=== PATIENT | female | born 1975 | race Caucasian/White ===

== ENCOUNTER 2022-08-11 07:13 | Emergency (ER) | payer MEDICAID, SELFPAY ==
[2022-08-11 07:15] VITALS: BP 163/86; PULSE 90; RESP 18; TEMP 36.8; O2SAT 100; BMI 37.3
--- NOTE | 2022-08-11 07:29 | EKG12_ITS ---
Test Reason : CP Blood Pressure : / mmHG Vent. Rate : 089 BPM Atrial Rate : 089 BPM P-R Int : 134 ms QRS Dur : 074 ms QT Int : 386 ms P-R-T Axes : 063 033 035 degrees QTc Int : 469 ms Normal sinus rhythm Normal ECG Confirmed by JENARO CLAIRE, [place] ([id number]), graphic editor ALY AGUILAR ([id number]) on 08/12/2022 1:43:00 PM Referred By: BRANNON Confirmed By:CHINA EASON MD
--- NOTE | 2022-08-11 07:30 | ED.VIS.CHEST ---
HPI History of Present Illness Chief Complaint: Chest Pain Narrative Narrative: 46-year-old female who denies significant past medical history, former smoker with family history, presents with left-sided pleuritic chest pain that began at 5 AM, approximately 2-1/2 hours ago. It did not wake her from sleep as she states she was already awake. She states that she has had a strange, whistling cough since June that has been on and off. However, this does feel like when she had pneumonia in 2011. She has pain under her left breast at the bottom of her rib cage. She denies any fevers or chills. No nausea or vomiting, no other symptoms, no leg swelling. [facility] Medical History Asthma delivery delivered Home Medications albuterol sulfate 90 mcg/actuation aerosol inhaler (Ventolin HFA) 1 - 2 puff inhalation Q4H PRN PRN Wheezing #1 ea 08/11/22 [Rx Last Taken Unknown] levofloxacin 750 mg tablet 750 mg PO DAILY #7 tabs 08/11/22 [Rx Last Taken Unknown] Allergy/AdvReac Type Severity Reaction Status Date / Time Penicillins [PCN] Allergy Rash Verified 08/11/22 07:15 Surgical History History of tonsillectomy Social History Smoking Status: Former smoker ROS ROS ED ROS Narrative Constitutional: No fever, no chills. HEENT: No sore throat. No neck pain. No loss of vision. No rhinorrhea. Cardiovascular: Left-sided pleuritic chest pain. No palpitations. No pedal edema. Respiratory: Whistling cough, intermittent no shortness of breath. Abdominal: No abdominal pain. No nausea. No vomiting. Genitourinary: No dysuria. No hematuria. Musculoskeletal: No myalgias. No arthralgias. Neurologic: No headaches. No dizziness. No lightheadedness. Skin: No rash. No change in color. Psychiatric: No depression. No anxiety. EXAM Physical Exam Narrative Exam Narrative: Afebrile. Vital signs noted. HEENT: Normocephalic. Atraumatic. PERRL, EOMI. Neck soft and supple. No point tenderness or step off. Cardiovascular: Regular rate and rhythm. No murmurs, rubs, or gallops appreciated. Respiratory: No tachypnea. Lungs clear to auscultation bilaterally. Gastrointestinal: Abdomen soft, nontender, with normoactive bowel sounds. No rebound or guarding. Neurological: Awake. Alert. Nonfocal, nonlateralizing. Skin: No rash. Normal color. No pallor. Musculoskeletal: No pedal edema. Full range of motion extremities. Const Vital Signs: 08/11/22 07:15 08/11/22 07:17 08/11/22 07:31 Temperature 98.2 F Temperature Source Temporal Pulse Rate 90 Respiratory Rate 18 Respiratory Effort Normal Non-Labored Blood Pressure 163/86 H Blood Pressure Mean 111 Pulse Ox 100 94 Oxygen Delivery Method Room Air Room Air 08/11/22 09:00 08/11/22 10:00 08/11/22 10:21 Temperature Temperature Source Pulse Rate 78 82 82 Respiratory Rate 17 19 H Respiratory Effort Blood Pressure 146/75 H 150/73 H 150/89 H Blood Pressure Mean 98 98 Pulse Ox 95 95 Oxygen Delivery Method Room Air Room Air Heart Score History: Slightly/Non-Suspicious ECG: Normal Age: >45 - <65 years Risk Factors: 1 or 2 Risk Factors Score: 2 MDM MDM MDM Narrative Medical decision making narrative: In the differential diagnosis is acute coronary syndrome versus pleurisy versus pneumonia versus pulmonary embolism. I feel that pulmonary embolism is less likely because she has a normal pulse rate, pulse ox is 100% on room air, and she denies any DVT or PE risk factors. D-dimer will be obtained. I also feel that acute coronary syndrome is less likely such as STEMI as she has a normal EKG. Her EKG was obtained and interpreted by myself which demonstrates normal sinus rhythm at 89 bpm without ectopy or acute ST changes. No STEMI. I also reviewed and interpreted the prehospital EKG which demonstrates normal sinus rhythm at 95 bpm without ectopy or acute ST changes, also without STEMI. She was administered aspirin. Chest x-ray will be obtained to rule out pneumonia along with laboratory work. I reviewed her laboratory work and she has slightly leukocytosis of 12.8 with normal hemoglobin of 14.7, platelet count normal at 261. D-dimer normal at 0.45, making pulmonary embolism less likely. Electrolyte panel shows normal sodium of 139, chloride 105, potassium normal at 4.0. Glucose is elevated at 289 but she has normal anion gap of 10. I do not feel that she is in diabetic ketoacidosis. High-sensitivity troponin initially is 7. She was administered aspirin for her pain. Second troponin will be repeated in 2 hours, and I feel she could be ruled out by biomarkers. Her repeat troponin is 6. Chest x-ray in 1 view interpreted by myself shows questionable left-sided pneumonia. I do feel that given her pleuritic pain and this feels that she had pneumonia on the side previously that she should be treated with antibiotics. She was given her first dose of Levaquin here in the emergency department and a prescription written for the next 7 days along with an albuterol inhaler to use every 4-6 hours as needed, as she describes a whistling cough. I did review the radiology report which also states that there is possible left lingular pneumonia. At this point in time, she will be discharged to follow-up with her primary care provider. She was referred to a provider on-call. Return instructions to the emergency department were reviewed. Disposition is discharged home in stable condition. Lab Data Attestation: I reviewed the patient's lab results. Labs: Laboratory Results - last 24 hr 08/11/22 08/11/22 08/11/22 07:35 07:35 07:35 WBC 12.8 H RBC 4.91 Hgb 14.7 Hct 45.1 MCV 91.9 MCH 29.9 MCHC 32.6 RDW Std Deviation 41.8 RDW Coeff of Allison 12.5 Plt Count 261 MPV 10.0 Immature Gran % (Auto) 2.400 H Neut % (Auto) 68.5 Lymph % (Auto) 20.4 Whitman % (Auto) 6.3 Eos % (Auto) 1.6 Baso % (Auto) 0.8 Absolute Neuts (auto) 8.7 H Absolute Lymphs (auto) 2.60 Nucleated RBC % 0 D-Dimer Quant (PE/DVT) 0.45 Sodium 139 Potassium 4.0 Chloride 105 Carbon Dioxide 24.0 Anion Gap 10 BUN 10 Creatinine 0.84 Estim Creat Clear Calc 62.48 Est GFR (MDRD) Af Amer 93 Est GFR (MDRD) Non-Af 77 BUN/Creatinine Ratio 11.9 Glucose 289 H Calcium 9.2 Troponin I High Sens 7 08/11/22 09:40 WBC RBC Hgb Hct MCV MCH MCHC RDW Std Deviation RDW Coeff of Allison Plt Count MPV Immature Gran % (Auto) Neut % (Auto) Lymph % (Auto) Whitman % (Auto) Eos % (Auto) Baso % (Auto) Absolute Neuts (auto) Absolute Lymphs (auto) Nucleated RBC % D-Dimer Quant (PE/DVT) Sodium Potassium Chloride Carbon Dioxide Anion Gap BUN Creatinine Estim Creat Clear Calc Est GFR (MDRD) Af Amer Est GFR (MDRD) Non-Af BUN/Creatinine Ratio Glucose Calcium Troponin I High Sens 6 Radiography Chest X-Ray - ED: Read by ED Physician Diagnostic Testing: Clinical Impression(s) from Imaging Studies Chest X-Ray 08/11/22 07:45 IMPRESSION: Question lingular pneumonia. Electronically Signed: Mike Gan MD at 8:15 EST , Discharge Plan Triage Chief Complaint: Chest Pain Other Complaint: Shortness of Breath ED Provider: Bo Laird Dx/Rx/DC Orders Clinical Impression: Lingular pneumonia, Chest pain Instructions: ED Chest Pain, Noncardiac, ED Pneumonia (Adult) Prescriptions: New levofloxacin 750 mg tablet 750 mg PO DAILY Qty: 7 0RF albuterol sulfate [Ventolin HFA] 90 mcg/actuation HFA aerosol inhaler 1 - 2 puff inhalation Q4H PRN PRN (Reason: Wheezing) Qty: 1 0RF Primary Care Provider: Care Physician,No Primary Referrals: Zuleyma Jeronimo MD [Med Staff - Regulatory Submissions Associate] - 1 Week if not improving Care Physician,No Primary [Primary Care Provider] - Disposition Disposition: Home, Self Care
[2022-08-11 07:31] VITALS: O2SAT 94
[2022-08-11] MEDS: Aspirin 81 MG TAB.CHEW 324 MG PO (07:35)
[2022-08-11] MEDS: 0.9% Normal Saline 1,000 ML 150 ML IV (07:40)
--- NOTE | 2022-08-11 07:45 | RAD_ITS ---
EXAM: XR CHEST, 1 VIEW CLINICAL INDICATION: chest pain TECHNIQUE: Frontal view of the chest. This report was created using [employer] report generation technology. COMPARISON: None. FINDINGS: LUNGS AND PLEURAL SPACES: Lingular opacity which may represent focal area of pneumonia. No pneumothorax. No effusion. HEART: Normal heart size. MEDIASTINUM: No mediastinal or hilar mass. BONES/JOINTS: No acute abnormality. SOFT TISSUES: Normal. RAD/Chest 1 View (Portable) IMPRESSION: Question lingular pneumonia. Electronically Signed: Mike Gan MD at 8:15 EST ,
[2022-08-11 07:47] LABS: Absolute Neutrophil Count 8.7 X10^3/uL (2.0-7.7); Basophil% 0.8 % (0-1); Eosinophil# 0.21 X10^3/uL; Eosinophils% 1.6 % (0-5); Hematocrit 45.1 % (37-47); Hemoglobin 14.7 g/dL (12.0-15.0); Lymphocyte % 20.4 % (19-41); Mean Corp Hgb Conc 32.6 g/dL (32-36); Mean Corpuscular Hgb 29.9 pg (27.0-32.0); Mean Corpuscular Volume 91.9 fL (81-99); Monocyte% 6.3 % (0-10); NRBC Flagged by Analyzer 0 % (0-5); Neutrophil # 8.74 X10^3/uL (2.7-7.7); Neutrophil % 68.5 % (47-70); Platelet Count 261 K/mm3 (150-450); RBC Distribution Width CV 12.5 % (11.6-14.6); RBC Distribution Width SD 41.8 fl (35.1-43.9); Red Blood Count 4.91 M/mm3 (4.2-5.4); White Blood Count 12.8 K/mm3 (4.4-11.0)
[2022-08-11 08:04] LABS: Anion Gap 10 (5-15); BUN 10 mg/dL (7-18); BUN/Creat Ratio 11.9 RATIO (10-20); Calcium,Total 9.2 mg/dL (8.5-10.1); Chloride 105 mmol/L (98-107); Creatinine, Serum 0.84 mg/dL (0.55-1.02); EST Glomerular Filtration Rate 77 mL/min (>60); Est Glom Filt Rate - Afr Amer 93 mL/min (>60); Estimated Creatinine Clearance 62.48 ml/min; Glucose 289 mg/dL (74-106); Sodium Level 139 mmol/L (136-145); Troponin-I HS (w/2H Reflex) 7 pg/mL (3.0-54.0)
[2022-08-11 08:06] LABS: D-Dimer Quantitative (DVT/PE) 0.45 FEU/ug/m (0.27-0.49)
[2022-08-11] MEDS: levoFLOXacin 750 MG Tablet PO (08:44)
[2022-08-11 09:00] VITALS: BP 146/75; PULSE 78; RESP 17; O2SAT 95
[2022-08-11 09:44] LABS: Reflex Troponin-HS? (from REC) Y
[2022-08-11 10:00] VITALS: BP 150/73; PULSE 82; RESP 19; O2SAT 95
[2022-08-11 10:11] LABS: Troponin-I HS 6 pg/mL (3.0-54.0)
[2022-08-11 10:21] VITALS: BP 150/89; PULSE 82
== END 2022-08-11 10:26 | disposition home or self-care (01) ==
PROVIDERS: Emergency Provider Emergency Medicine; Visit Provider Emergency Medicine
DX: J18.9 Pneumonia, unspecified organism (principal); Z87.891 Personal history of nicotine dependence; N64.4 Mastodynia; R07.9 Chest pain, unspecified; J45.909 Unspecified asthma, uncomplicated
CPT/HCPCS: 71045; 80048; 84484; 85025; 85379; 93005; 96360; 96361; 99285; J7030; A4216

== ENCOUNTER 2023-12-21 06:26 | Emergency (ER) | payer OTHER, SELFPAY ==
--- NOTE | 2023-12-21 09:17 | ED.VIS.BACK ---
HPI History of Present Illness Detail of Chief Complaint: Taking care of during computer downtime on 12/21/2023. Informant: patient Onset/Context/Timing Onset: Days Context: Gradual Onset Timing: Continuous Quality: Sharp Location: - (Right knee and lower neck pain) Current Severity: Moderate Maximum Severity: Moderate Worsened by: improves with Movement Relieved by: Nothing Associated Symptoms Associated Symptoms: Tingling and - (Radiation the right arm and right thumb.) Narrative Narrative: 48-year-old female 9-day history of lower neck and right lateral neck pain radiating to her right thumb. Denies weakness. Has some tingling in the arm. Has never had neck or back surgery. Denies any fall or trauma. No fever. Denies any other complaints. Prior similar symptoms: No Recent Illness/Hospitalization: No PFSH [facility] Medical History delivery delivered Asthma Home Medications ?Medication ?Instructions ?Recorded ?Last Taken ?Type albuterol sulfate 90 mcg/actuation 1 - 2 puff inhalation Q4H PRN PRN 08/11/22 Unknown Rx aerosol inhaler (Ventolin HFA) Wheezing #1 ea levofloxacin 750 mg tablet 750 mg PO DAILY #7 tabs 08/11/22 Unknown Rx Allergy/AdvReac Type Severity Reaction Status Date / Time Penicillins (PCN) Allergy Rash Verified 08/11/22 07:15 Surgical History History of tonsillectomy Social History Smoking Status: Former smoker ROS ROS ED ROS Narrative Neck pain. Atraumatic. Review of Systems ROS Unobtainable: Denies due to encephalopathy Constitutional Constitutional ED: Denies chills or fever(s) Eyes Eyes: Denies blurry vision ENT ENT ED: Denies ear pain Respiratory/Chest Respiratory/Chest: Denies dyspnea Gastrointestinal Gastrointestinal: Denies abdominal pain Genitourinary Genitourinary ED: Denies dysuria or hematuria Musculoskeletal Musculoskeletal: Reports neck pain; Denies arthralgias, back pain or myalgias Integumentary Denies abscess or Abrasions Neurologic Neurologic: Denies headache(s) Psychiatric Psychiatric: Denies anxiety or depression Endocrine Endocrinology: Denies cold intolerance Hematologic/Lymphatic Hematologic/Lymphatic: Denies easy bleeding, easy bruising or lymphadenopathy Allergic/Immunologic Allergic/Immunologic ED: Denies mouth swelling, tongue swelling or urticaria EXAM Physical Exam Narrative Exam Narrative: For 8-year-old female vital signs stable afebrile. Does not look septic or toxic. H EENT exam unremarkable. Neck there is no reproducible neck pain. She complains of pain in her lower cervical spine and right paraspinal area but there is no muscle spasm. There is no reproducible tenderness. Trachea is midline. Upper back nontender. No muscle spasm. Lungs clear. Heart regular rhythm. Abdomen soft nontender. Moving all 4 extremities. 5 of 5 linen grader strength bilaterally. Dorsi plantarflexion intact. Normal sensation. There is no muscle wasting in either upper extremity. She has 5 out of 5 linen grader strength bilaterally. She has normal sensation. Const Positive well nourished and well developed; Negative for cachectic, contractures or unkempt General Appearance ED: well developed and NAD; Negative for unkempt, cachectic, contractures or pallor Nutritional Appearance: Negative for cachectic HEENT Reports moist mucous membranes Negative for trauma Eyes PERRL and EOMs intact bilaterally General Eye ED: Negative for pale conjunctiva or scleral icterus Neck no lymphadenopathy, supple and no JVD General: Negative for tenderness Thyroid: Negative for other Resp normal respiratory effort and clear to auscultation bilaterally Effort and Inspection: Negative for pain with movement Auscultation: Negative for rales, rhonchi, wheezes or diminished lung sounds Cardio regular rate, regular rhythm, S1 normal heart sound, S2 normal heart sound and no murmurs Palpation: Negative for palpable S3 Rate: Negative for bradycardia or tachycardic Rhythm: Negative for abnormal rhythm Bruits: Negative for other GI normal to inspection, nondistended, normoactive bowel sounds, soft to palpation, non-tender, non-distended and no masses Inspection: Negative for abdominal distention Palpation: Negative for tender, guarding or rebound tenderness present Back/Spine normal to inspection and no thoracic nor lumbar tenderness Back/Spine Narrative: No reproducible neck or paraspinal soft tissue pain. Cervical Spine: Negative for cervical spine tenderness and Negative for paracervical muscle tenderness Thoracic Spine / Upper Back: Negative for paraspinal muscle tenderness Lumbar Spine / Lower Back: Negative for ROM limited Extremity normal to inspection and no clubbing, cyanosis or edema General Extremety ED: Negative for edema or tenderness General Extremity: Negative for edema Neuro oriented x3 and no sensory deficits noted Sensorium / Orientation: alert; Negative for confused, lethargic or stuporous Sensory Exam: No other Motor Exam: strength 5/5 throughout; Negative for strength abnormal Psych mental status grossly normal Appearance: Negative for unkempt Attitude: No agitated and No other Mood & Affect: Negative for depressed, sad or tearful Skin no rashes or lesions noted and no wounds General Skin Exam: Negative for jaundice or pallor Lesions: No lesion noted Rashes: No rashes noted Trauma: Negative for abrasion or puncture Wounds: Negative for wounds noted MDM MDM MDM Narrative Medical decision making narrative: 48-year-old female with atraumatic neck pain for 9 days. This appears to be a cervical disc. With radiculopathy going to her right hand primarily the thumb. She has normal strength and sensation. There is no muscular atrophy or wasting of her upper extremities. Equal symmetrical. Lower extremities are normal. I explained to the patient there is no testing to do at this time. Clinically this was a cervical disc. She will be placed on prednisone first dose given in the ER and 40 mg a day for 10 days. Outpatient follow-up with primary care physician if this is not improving she may need a cervical MRI. She does return if a lot worse. History & Record Review Discussion w/independent historian: Patient Discharge Plan Triage ED Provider: Provider,Ed Physician Dx/Rx/DC Orders Clinical Impression: Acute neck pain, Cervical radiculopathy Prescriptions: No Action levofloxacin 750 mg tablet 750 mg PO DAILY Qty: 7 0RF albuterol sulfate [Ventolin HFA] 90 mcg/actuation HFA aerosol inhaler 1 - 2 puff inhalation Q4H PRN PRN (Reason: Wheezing) Qty: 1 0RF Primary Care Provider: Care Physician,No Primary Referrals: Care Physician,No Primary [Primary Care Provider] - Activity Restrictions/Additional Instructions: This was done on computer downtime. Her home-going instructions were handwritten. She was written for Percocet for pain. Prednisone for 10 days. Outpatient follow-up with primary care physician if not improving she may need an MRI. Print Language: Thai Disposition Disposition: Home, Self Care
== END 2023-12-21 07:07 | disposition home or self-care (01) ==
PROVIDERS: Emergency Provider Emergency Medicine; Visit Provider Emergency Medicine
DX: M54.12 Radiculopathy, cervical region (principal); Z87.891 Personal history of nicotine dependence; J45.909 Unspecified asthma, uncomplicated
CPT/HCPCS: 99283